=== PATIENT | female | born 1980 | race Caucasian/White ===

== ENCOUNTER 2025-06-19 08:38 | Emergency (ER) | payer BC, SELFPAY ==
[2025-06-19 08:41] VITALS: BP 146/78
--- NOTE | 2025-06-19 09:29 | ED.GENMED ---
History of Present Illness
General
Chief Complaint: Flank Pain
Source: patient
Exam Limitations: none
Time Seen by Provider: 06/19/25 09:22
History of Present Illness
History of Present Illness:
See MDM
Past History
Past History
ED Past Medical History: Other (Transposition of great vessels (repaired)) and Other (Kidney stone)
ED Past Surgical History: Cardiac
Social History
Tobacco: Non-smoker
Alcohol: None
Drug: None
Personal:
Living: with family
Employment: Employed
Family History
Family History: Negative Sudden
Phy Exam
Physical Exam
Physical Exam:
See MDM
Course
Orders/Labs/Results
Orders:
Orders
06/19/25 09:28
CT Abd/pel Without Iv Or Oral Urgent
Comment:
Reason For Exam: R flank pain
0.9% Sodium Chloride 1000 ml [Nss] 1,000 ml IV BOLUS
Morphine Sulfate 4 mg IV NOW STA
Ondansetron Injectable [Zofran] 4 mg IV NOW STA
Test Result ONCE
06/19/25 09:46
Complete Blood Count/With Diff Urgent
Comprehensive Metabolic Panel Urgent
HCG, Urine Qualitative Screen Urgent
Date Specimen was Collected: 06/19/25
Time Specimen was Collected: 09:41
Urinalysis Reflex To Culture Urgent
Date Specimen was Collected: 06/19/25
Time Specimen was Collected: 09:43
Urine Microscopic Reflex Cult Urgent
Urine Culture Urgent
TRACIE Source: U
Specimen Description:
Date Specimen was Collected: 06/19/25
Time Specimen was Collected: 09:43
06/19/25 12:21
Ciprofloxacin HCl [Cipro] 500 mg PO ONCE ONE
Abnormal Lab Results
06/19/25
09:46
Leukocyte Esterase Rfl 1+ A
(Negative)
Urine WBC (Reflex) 11-15 A /HPF
(0-5)
Urine Bacteria (Reflex) Moderate A
(Negative)
Urine Albumin (Reflex) 1+ A
(Neg - Trace)
06/19/25 09:46
06/19/25 09:46
Vital Signs
Initial and Last Documented VS:
Initial Vital Signs
Temp Pulse Resp BP Pulse Ox
98.5 F 85 16 146/78 98
06/19/25 08:41 06/19/25 08:41 06/19/25 08:41 06/19/25 08:41 06/19/25 08:41
Last Documented Vital Signs
Temp Pulse Resp BP Pulse Ox
98.5 F 85 16 146/78 98
06/19/25 08:41 06/19/25 08:41 06/19/25 08:41 06/19/25 08:41 06/19/25 09:31
MDM/Problems Addressed
Differential Diagnosis Includes:
Note:
CHIEF COMPLAINT(S)
Flank pain and frequent urination.
HISTORY OF PRESENT ILLNESS
The patient is a 45-year-old female with a medical history of a previous kidney stone around three years ago. Presently, she is experiencing flank pain that began suddenly yesterday at approximately 10 AM, accompanied by frequent urination that she
has noticed for a couple of weeks. The pain prompted her visit to urgent care, where she was administered a dose of ketorolac and advised to visit the ER if symptoms did not improve. She reports that her current symptoms are very similar to her
previous kidney stone episode, indicating possible recurrence. Ketorolac taken this morning provided minimal relief. She has no history of frequent urinary tract infections (UTIs).
EXTERNAL RECORDS REVIEWED
Patients previous urgent care report, indicating the administration of ketorolac and urinalysis, was reviewed.
CHRONIC MEDICAL CONDITIONS SIGNIFICANTLY AFFECTING CARE
Chronic conditions affecting care include a history of kidney stone.
PHYSICAL EXAM
General: mildly uncomfortable, pacing
Skin: Warm, dry.
Head: Normocephalic, atraumatic
Neck: Appears supple, trachea midline.
Eyes, Ears, Nose, Mouth, and Throat: Moist mucous membranes
Cardiovascular: No signs of cyanosis
Respiratory: Respirations are non-labored.
Abdomen: Non-distended
Back: No rash or CVA tenderness to the right
Musculoskeletal: No deformities
Neurological: No focal neurological deficit observed.
Psychiatric: Cooperative, appropriate mood and affect.
PLAN
- Perform a computed tomography (CT) scan to evaluate for kidney stones or infection.
- Obtain urinalysis and basic blood work to assess for infection or abnormalities.
- Administer intravenous fluids.
- Provide pain management with morphine.
- Administer antiemetic medication to mitigate potential morphine-induced nausea.
DIFFERENTIAL DIAGNOSIS
The Differential Diagnosis includes, in no particular order and is not limited to:
- Nephrolithiasis (Kidney Stones)
- Pyelonephritis
- Ureteral Stone
- Ureteric Obstruction
- Lower Urinary Tract Infection
- Renal Colic
- Hydronephrosis
- Interstitial Cystitis
- Recurrent Urinary Tract Infection
- Lower Back Musculoskeletal Pain
SUMMARY OF ENCOUNTER
The patient presented to the emergency department with sudden onset of flank pain and frequent urination, raised the suspicion for a kidney stone or urinary infection, similar to a prior episode. Due to the similarity of symptoms with her past
kidney stone incident, a computed tomography scan was planned along with urinalysis and blood work to confirm the diagnosis. Intravenous medication, including morphine for pain relief and antiemetics, was discussed for symptom management.
MEDICATION RECONCILIATION
- Received ketorolac at urgent care.
- Morphine administered in the emergency department.
- Prescription for antiemetics for potential side effect management.
MEDICAL DECISION MAKING
-Complexity of Data Reviewed: Chronic conditions affecting care include a history of kidney stones, similar symptoms noted, possibility of a stone versus infection considered.
-Data:
- Category 1:
- Planned CT scan to assess for stones or infection.
- Urinalysis and blood work ordered to check for infections.
- Category 2:
- Review of recent urgent care records noting ketorolac administration.
-Risk:
- Consideration of Admission/Observation: Escalation of care including admission/observation was considered given the complexity and risk of the patients presenting complaint and her underlying history. However, given the working diagnosis and with
appropriate interventions, she was planned for outpatient management. Prescription medication was administered and is consistent with outpatient management.
DIAGNOSIS
- Nephrolithiasis (Possible Recurrent Kidney Stone) [ICD-10: N20.0]
- Suspected Urinary Tract Infection (UTI) [ICD-10: N39.0]
- Flank Pain [ICD-10: R10.9]
SUMMARY OF ENCOUNTER
The patient presented to the emergency department with right flank pain, suspicious of a recurring kidney stone, kaushik to a prior episode. A CT scan did not reveal any right-sided kidney stones, but a current urine sample showed bacterial presence,
indicating the possibility of pyelonephritis. Medications, specifically antibiotics, were discussed for medical management. Strict return precautions were discussed, advising the patient to return if symptoms, like pain or fever, escalate. A kidney
stone was identified in the left ureter, though the patient reported no left-sided abdominal or flank pain, assuming the stone had passed. Further urological evaluation is suggested for its management.
DISPOSITION
Discharge
ASSESSMENT
Right flank pain suspected to be due to possible pyelonephritis; a left ureteric stone was identified, suggesting further evaluation with urology.
PLAN
Treat potential pyelonephritis with antibiotics and discuss strict return precautions with the patient for worsening pain or fever. Recommend follow-up with urology for the left ureteric stone.
INDEPENDENT REVIEW OF LABS AND INTERPRETATION OF TESTS
My independent review of the CT scan indicates the absence of a right-sided kidney stone but identifies a stone in the left ureter. My independent review of the urinalysis shows bacterial presence, indicating possible pyelonephritis.
PATIENT EDUCATION AND COUNSELING
The patient was informed about the possible pyelonephritis and the need for antibiotic treatment and advised on the potential implications and management of the left ureteric stone. Strict return precautions were discussed for worsening symptoms.
FOLLOW-UP INSTRUCTIONS
Follow-up with urology is advised for the management of the left ureteric stone.
MEDICAL DECISION MAKING
-Complexity of Data Reviewed: Chronic conditions affecting care include a history of kidney stones. Differential Diagnosis includes nephrolithiasis, pyelonephritis, ureteral stone, ureteric obstruction, lower urinary tract infection, renal colic,
hydronephrosis, interstitial cystitis, recurrent urinary tract infection, and lower back musculoskeletal pain.
-Data:
Category 1
My independent interpretation of the CT scan shows no right-sided kidney stone but identifies a stone in the left ureter.
My independent review of the urinalysis indicates bacterial presence suggesting possible pyelonephritis.
-Risk: Consideration of Admission/Observation: Escalation of care including admission/observation was considered given the complexity and risk of the patients presenting complaint and her underlying history. However, ultimately I feel the patient is
safe for outpatient management with close follow up. Reasoning: Work-up reassuring, does not reveal any acute life/organ-threatening processes, patients symptoms well controlled upon reevaluation, reexamination is reassuring, vitals are stable,
patient agreeable with discharge, reliable for follow-up.
*Pulse Oximetry
SaO2: 98
Oxygen Mode of Delivery: Room air
Patient hypoxic: no
*Critical Care Note
Total Time (30-74mins, 75-104mins- exclusive of procedures): Not Applicable
ED Attending Note
-
Portions of this chart may have been created with voice recognition software.� Occasional wrong word or��sound alike� substitutions may have occurred due to the inherent limitations of voice recognition software.
Discharge Plan
Departure
Patient Disposition: Home (Routine Discharge)
Date of Disposition: 06/19/25
Time of Disposition: 12:22
Patient with high blood pressure during this ER visit?: Yes
Discharge Problem:
Pyelonephritis
Instructions: Urinary tract infection in adults - ED (DC), BLOOD PRESSURE
Prescriptions:
New
ciprofloxacin HCl 500 mg Tablet
500 mg PO BID Qty: 14 0RF
oxycodone 5 mg tablet
5 mg PO Q8H PRN (Reason: Pain) Qty: 10 0RF
No Action
oxycodone 5 mg capsule
5 mg PO Q6H PRN (Reason: severe pain) Qty: 14 0RF
tamsulosin [Flomax] 0.4 mg capsule
0.4 mg PO DAILY Qty: 14 0RF
Referrals:
Carlos Mcdowell MD [Active, Urology]
Kimi Ramirez DO [Family Provider, Family Practice]
Activity Restrictions/Additional Instructions:
Please return for any worsening symptoms.
You may return at any time if you have further concerns.
Please follow up with your doctor at the first available appointment, preferably this week.
Please make an appointment to see the urologist.
Thank you for choosing [facility].
Interventions
Interventions:
*Risk Screen - Suicide Last Done: 06/19/25 08:41
*General Assessment Last Done: 06/19/25 09:57
*Neglect/Abuse Screening Last Done: 06/19/25 08:41
*ED COVID-19 Vaccine History Last Done: 06/19/25 09:57
*ED Influenza Vaccine History Last Done: 06/19/25 09:57
[facility] Fall Risk Assessment Tool Last Done: 06/19/25 09:57
WB-Oyfwyu-Adalmlzewz Assessment Last Done: 06/19/25 09:57
ED-Female Genitourinary Assessment Last Done: 06/19/25 10:04
Discharge Date and Time
Print Language: ARABIC
[2025-06-19 09:57] VITALS: BMI 34.5
[2025-06-19] MEDS: NSS 1000 IV (10:05)
[2025-06-19] MEDS: ZOFRAN 4 MG IV (10:09)
[2025-06-19] MEDS: MORPHINE SULFATE 4 MG IV (10:09)
[2025-06-19 10:20] LABS: Hematocrit 40.8 % (37.0-47.0); Hemoglobin 14.0 g/dL (12.0-16.0); Mean Corp Hgb Conc. 34.3 g/dL (33.0-37.0); Mean Corpuscular Volume 85.4 fL (81.0-99.0); Nucleated Red Blood Cells % 0 %; Platelet Count 228 10^3/uL (130-400); Red Cell Dist. Width 12.7 % (11.5-14.5)
[2025-06-19 10:21] LABS: Urine Character Clear (Clear)
[2025-06-19 10:27] LABS: ALT (SGPT) 31 U/L (0-35); AST (SGOT) 25 U/L (14-36); Albumin 4.4 g/dl (3.5-5.0); Alkaline Phosphatase 58 U/L (38-126); Blood Urea Nitrogen 14 mg/dl (7-17); Calcium 9.2 mg/dl (8.4-10.2); Carbon Dioxide 28 mmol/L (22-30); Chloride 103 mmol/L (98-107); Estimated Creatinine Clearance 113 ml/min; Glucose 94 mg/dl (70-99); Potassium 4.2 mmol/L (3.5-5.1); Sodium 136 mmol/L (135-145); Total Protein 7.3 g/dl (6.3-8.2); eGFR > 60.00
[2025-06-19 10:47] LABS: HCG, Urine Qualitative Screen Negative
[2025-06-19 10:51] LABS: Urine Red Blood Cell 0-2 /HPF (0-2); Urine Squamous Cell >30 /LPF (Few)
[2025-06-19] MEDS: CIPRO 500 MG PO (12:43)
[2025-06-19 12:44] VITALS: BP 133/71
== END 2025-06-19 12:48 | disposition home or self-care (01) ==
LOC: EMR 08:38
PROVIDERS: EMERGENCY PHYSICIAN Student in an Organized Health Care Education/Training Program; FAMILY PHYSICIAN Family Medicine
DX: N12 Tubulo-interstitial nephritis, not specified as acute or chronic (principal); Z87.442 Personal history of urinary calculi; Z90.49 Acquired absence of other specified parts of digestive tract
CPT/HCPCS: 96374; 96375; 96361; 99284; 74176; 80053; 81003; 81015; 81025; 85025; 87086